=== PATIENT | male | born 2005 | race Caucasian/White ===

== ENCOUNTER 2023-09-25 16:48 | Inpatient (IN) | payer OTHER ==
[2023-09-25 17:51] VITALS: RESP 16; BMI 16.5
[2023-09-25] MEDS ORDERED: MAGNESIUM HYDROX 2400MG/30ML ORAL SUSPENSION 30 ML CUP PO PRN (19:49)
[2023-09-25] MEDS ORDERED: ACETAMINOPHEN 325 MG TABLET (FP) PO PRN (19:49)
[2023-09-25] MEDS ORDERED: NALOXONE (NARCAN) HCL 4 MG/0.1 ML SPRAY NS PRN (19:49)
[2023-09-25] MEDS ORDERED: guaiFENesin 600 MG TABLET.ER (FP) PO PRN (19:49)
[2023-09-25] MEDS ORDERED: BENZONATATE 200 MG CAPSULE PO PRN (19:49)
[2023-09-25] MEDS ORDERED: NALOXONE HCL 0.4 MG/ML VIAL IM PRN (19:49)
[2023-09-25] MEDS ORDERED: POLYETHYLENE GLYCOL (HEALTHYLAX) 3350 17 GM PACKET PO PRN (19:49)
[2023-09-25] MEDS ORDERED: LOPERAMIDE HCL 2 MG CAPSULE PO PRN (19:49)
[2023-09-25] MEDS ORDERED: BENZOCAINE/MENTHOL (CHLORASEPTIC ) LOZENGE MM PRN (19:49)
[2023-09-25] MEDS ORDERED: IBUPROFEN 400 MG TABLET (FP) PO PRN (19:49)
[2023-09-25] MEDS ORDERED: IBUPROFEN 600 MG TABLET (FP) PO PRN (19:49)
[2023-09-25] MEDS ORDERED: MAG HYDROX/AL HYDROX/SIMETH 30 ML UNIT-DOSE CUP PO PRN (19:49)
[2023-09-25] MEDS: MELATONIN 5 MG TABLETS PO SCH (21:19)
[2023-09-25] MEDS: THIAMINE 100 MG TABLET PO SCH (21:19)
[2023-09-26] MEDS: PRENATAL VITAMINS W/ FOLIC ACID TABLET (FP) PO SCH (09:56)
[2023-09-26] MEDS: hydrOXYzine PAMOATE 25 MG CAPSULE (FP) PO PRN (10:50)
[2023-09-26 12:00] LABS: CHLORIDE 106 mmol/L (98-107); POTASSIUM 4.5 mmol/L (3.5-5.1); SODIUM 139 mmol/L (136-145)
[2023-09-26 12:07] LABS: ALBUMIN 3.8 g/dl (3.4-5.0); ANION GAP 5 mmol/L (4-13); BLOOD UREA NITROGEN 13.5 mg/dL (7-18); CO2 28 mmol/L (21-32); GLUCOSE,RANDOM 89 mg/dL (74-106)
[2023-09-26 12:09] LABS: CREATININE 0.8 mg/dL (0.55-1.3); SGPT/ALT 10 U/L (13-61)
[2023-09-26 12:10] LABS: BILIRUBIN,TOTAL 0.6 mg/dL (0.2-1); CALCIUM 8.6 mg/dL (8.5-10.1); SGOT/AST 10 U/L (15-37)
[2023-09-26 12:11] LABS: ALK PHOS 83 U/L (45-117)
[2023-09-26 12:17] LABS: HEMATOCRIT 42.2 % (35.4-49); HEMOGLOBIN 14.4 GM/dL (11.7-16.9); MCH 29.9 pg (25.7-33.7); MCHC 34.1 g/dl (32.0-35.9); MEAN CELL VOLUME 87.6 fl (80-96); MEAN PLT VOLUME 7.8 fl (7.5-11.1); PLATELET COUNT 233 10^3/uL (134-434); RBC 4.82 M/mm3 (4.00-5.60); RDW 14.5 % (11.9-15.9); WHITE BLOOD COUNT 4.9 K/mm3 (4.0-10.0)
[2023-09-26] MEDS: SERTRALINE HCL 25 MG TABLET (FP) PO SCH (12:46)
[2023-09-26 20:40] LABS: PH,URINE 6.5 (5.0-8.0); URINE APPEARANCE CLEAR; URINE BILIRUBIN NEGATIVE (NEGATIVE); URINE COLOR DK YELLOW; URINE GLUCOSE (UA) NEGATIVE (NEGATIVE); URINE KETONE NEGATIVE (NEGATIVE); URINE LEUK ESTERASE NEGATIVE (NEGATIVE); URINE NITRITE NEGATIVE (NEGATIVE); URINE PROTEIN NEGATIVE (NEGATIVE)
[2023-09-26] MEDS: QUEtiapine FUMARATE 50 MG TABLET PO SCH (21:13)
[2023-09-26 22:24] LABS: SYPHILIS W/ RPR CONF NON-REACTIVE (NONREACTIVE)
[2023-09-27 06:40] VITALS: PULSE 60
[2023-09-28 06:33] VITALS: BP 125/74; TEMP 97.1
== END 2023-09-28 09:55 | disposition home or self-care (01) | DRG 772 ==
LOC: YASAS 16:48 → Y3W 20:15
PROVIDERS: ADMIT Allergy & Immunology; ATTEND Psychiatry & Neurology Pain Medicine
PROC: HZ42ZZZ Group Counseling for Substance Abuse Treatment, Cognitive-Behavioral (ICD-10-PCS; principal; 2023-09-25)
DX: F14.20 Cocaine dependence, uncomplicated (principal); F10.20 Alcohol dependence, uncomplicated; F11.20 Opioid dependence, uncomplicated; F16.10 Hallucinogen abuse, uncomplicated; F17.210 Nicotine dependence, cigarettes, uncomplicated; F19.282 Other psychoactive substance dependence with psychoactive substance-induced sleep disorder; F19.24 Other psychoactive substance dependence with psychoactive substance-induced mood disorder; F50.82 Avoidant/restrictive food intake disorder; F32.A Depression, unspecified; F41.9 Anxiety disorder, unspecified; Z62.810 Personal history of physical and sexual abuse in childhood
CPT/HCPCS: 36415; 80053; 80307; 81003; 85027; 86780; 86803; 93005; 93010